=== PATIENT | female | born 2000 | race Caucasian/White ===

== ENCOUNTER 2020-09-26 11:52 | Emergency (ER) | payer BC, SELFPAY ==
--- NOTE | ~2020-09-26 | CT_ITS ---
EXAMINATION: CT abdomen pelvis w con INDICATION: Right lower quadrant pain TECHNIQUE: Computed tomographic images of the abdomen and pelvis were obtained after the administrati on of 100 cc of Omnipaque 350 intravenous contrast. The dose-length product (DLP) was 265.64 mGy-cm. Automated exposure control and iterative reconstruction technique were employed. COMPARISON: None available FINDINGS: The lung bases are clear. The heart size is normal. The liver, spleen, pancreas, gallbladde r, and adrenal glands are normal. The kidneys are unremarkable. The appendix is normal. There is a sm all volume of free fluid in the pelvis. No pathologically enlarged abdominal or pelvic lymph nodes ar e identified. There is no free intraperitoneal gas or evidence of bowel obstruction. IMPRESSION: 1. No CT correlate for the patient's symptoms. Normal appendix. If there is high clinical concern for ovarian torsion, pelvic ultrasound is more sensitive than would be recommended. Reviewed, dictated and finalized at location [facility]. [facility] [employer]MENT TENDER IMPRESSION: 1. No CT correlate for the patient's symptoms. Normal appendix. If there is hig h clinical concern for ovarian torsion, pelvic ultrasound is more sensitive hunter n would be recommended.
[2020-09-26 12:14] VITALS: BP 126/71; PULSE 84; RESP 16; TEMP 36.1; O2SAT 98
[2020-09-26 12:29] LABS: Basophils Percent Auto 0.3 % (0.2-1.2); Hematocrit 39.4 % (37.0-47.0); Hemoglobin 13.8 g/dL (12.0-15.0); Immature Granulocyte Absolute 0.06 K/mm3 (0.00-0.031); Immature Granulocyte Percent A 0.5 % (0-0.5); Lymphocytes Absolute Auto 0.75 K/mm3 (0.9-3.2); Lymphocytes Percent Auto 6.6 % (18.3-44.2); Mean Corpuscular Hemoglobin 31.7 pg (26-34); Mean Corpuscular Volume 90.6 fl (80-100); Mean Platelet Volume 10.7 fl (7.4-10.4); Monocytes Absolute Auto 0.4 K/mm3 (0.1-0.6); Monocytes Percent Auto 3.1 % (2.6-8.5); Neutrophils Absolute Auto 10.1 K/mm3 (1.3-6.7); Neutrophils Percent Auto 89.5 % (45.5-73.1); Platelet Count Result 248 k/mm3 (150-375); Red Blood Count 4.35 M/mm3 (4.2-5.4); Red Cell Distribution Width 12.9 % (11.5-14.5); White Blood Count 11.3 K/mm3 (4.5-10.0)
[2020-09-26 13:04] LABS: Alanine Aminotransferase 23 U/L (4-35); Albumin Level 4.9 g/dL (3.5-5.1); Alkaline Phosphatase 50 U/L (38-126); Anion Gap 12 mmol/L (8-16); Aspartate Amino Transferase 34 U/L (14-36); Blood Urea Nitrogen 10 mg/dL (7-17); Calcium 9.8 mg/dL (8.4-10.2); Carbon Dioxide 22 mmol/L (22-30); Chloride 101 mmol/L (98-107); Estimated CRCL calculation 79 ml/min; Estimated Glomerular Filt Rate > 60; Glucose 278 mg/dL (65-105); Lipase 13 U/L (23-300); Potassium 4.3 mmol/L (3.4-5.0); Sodium 135 mmol/L (137-145)
--- NOTE | 2020-09-26 13:04 | ED.GENADULT ---
HPI - General Adult General Chief complaint: Abdominal Pain Stated complaint: n/v Time Seen by Provider: 09/26/20 12:34 Source: patient Mode of arrival: ambulatory Limitations: no limitations History of Present Illness HPI narrative: Patient awakened at 7 AM with lower abdominal pain, cramps, spasm, sharp, no radiation associated with frequent vomiting. Patient denies any fever, chills, diarrhea, constipation, vaginal bleeding or discharge or urinary symptoms. Patient denies a history of Covid or exposure to anybody known having Covid. Patient is type 1 diabetes on insulin pump, does not smoke or uses drugs, drinks alcohol occasionally Pain almost resolved on arrival to the emergency room Related Data Home Medications Medication Instructions Recorded Confirmed insulin pump cartridge [Omnipod 09/26/20 09/26/20 Insulin Refill] Allergies Allergy/AdvReac Type Severity Reaction Status Date / Time No Known Allergies Allergy Verified 09/26/20 12:18 Review of Systems Review of Systems: Narrative: CONSTITUTIONAL: Denies fever, chills, or sweats. EYES: Denies visual changes, redness, or discharge. ENT: Denies rhinorrhea, congestion, sore throat, or otalgia. CARDIOVASCULAR: Denies chest pain, palpitations, or edema. RESPIRATORY: Denies cough or dyspnea. GASTROINTESTINAL: Denies abdominal pain, nausea, vomiting, or diarrhea. GENITOURINARY: Denies dysuria or hematuria. SKIN: Denies rash or itching. MUSCULOSKELETAL: Denies back pain, joint pain, or myalgia. NEUROLOGIC: Denies headache, numbness, or weakness. PSYCHIATRIC: Denies anxiety or depression. [facility] Social History Social History Gender identity (if verbalized by the patient): Female Exam Narrative: Exam Narrative: General appearance: Well-developed, well-nourished Skin: Normal color Head: Normocephalic, nontraumatic Eyes: Clear conjunctiva ENT: Oropharynx normal, ears normal, nose normal Neck: Supple, nontender Chest and respiratory: Airway patent, no respiratory distress, no accessory muscle use Heart: Regular rate/rhythm Abdomen: Soft, slight diffuse tenderness, quiet bowel sounds Vascular: Normal peripheral pulses, normal capillary refill. 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, no gross motor deficit Course Course Emergency Course: Improving Vital Signs Vital signs: Vital Signs Temperature 36.1 C L 09/26/20 12:14 Pulse Rate 84 09/26/20 12:14 Respiratory Rate 16 09/26/20 12:14 Blood Pressure 126/71 09/26/20 12:14 Pulse Oximetry 98 09/26/20 12:14 Temperature 36.1 C L 09/26/20 12:14 Pulse Rate 84 09/26/20 12:14 Respiratory Rate 16 09/26/20 12:14 Blood Pressure 126/71 09/26/20 12:14 Pulse Oximetry 98 09/26/20 12:14 Medical Decision Making MDM Narrative Medical decision making narrative: Patient presents with lower abdominal pain, sinusitis, urinary tract infection, ovarian cyst, constipation, urinary tract infection are my concern. Labs, CT abdomen and pelvis with IV contrast, IV fluid ordered. Further plan to follow Differential Diagnosis Differential Diagnosis: Appendicitis, urinary tract infection, ruptured ovarian cyst Vital Signs Vital Signs: Vital Signs Temperature 36.1 C L 09/26/20 12:14 Pulse Rate 84 09/26/20 12:14 Respiratory Rate 16 09/26/20 12:14 Blood Pressure 126/71 09/26/20 12:14 Pulse Oximetry 98 09/26/20 12:14 Temperature 36.1 C L 09/26/20 12:14 Pulse Rate 84 09/26/20 12:14 Respiratory Rate 16 09/26/20 12:14 Blood Pressure 126/71 09/26/20 12:14 Pulse Oximet
[2020-09-26] MEDS: SODIUM CHLORIDE 0.9% IV 1,000 ML 999 ML IV CONT (13:11)
[2020-09-26 13:46] LABS: Add Urine Microscopic? YES; Appearance Urine Clear (Clear); Bacteria Urine Trace /hpf; Bilirubin Urine Negative (Negative); Blood Urine Negative (Negative); Color Urine Yellow (Yellow); Glucose Urine UA 3+ mg/dL (Negative); Ketones Urine 2+ mg/dL (Negative); Leukocyte Esterase Ur Negative LEU/UL (Negative); Mucus Urine Rare /lpf; Nitrate Urine Negative (Negative); Protein Urine 1+ mg/dL (Negative); Specific Grav Ur 1.022 (1.001-1.035); Squamous Epithelial Cell Urine Rare /hpf (Few); Urobilinogen Urine Negative mg/dL (<2.0); WBC Urine 0-3 /hpf
[2020-09-26 14:37] VITALS: BP 128/66; PULSE 80; RESP 16; O2SAT 98
== END 2020-09-26 14:37 | disposition home or self-care (01) ==
PROVIDERS: Emergency Provider Emergency Medicine
DX: R10.30 Lower abdominal pain, unspecified (principal); E10.9 Type 1 diabetes mellitus without complications; Z96.41 Presence of insulin pump (external) (internal); Z79.4 Long term (current) use of insulin
CPT/HCPCS: 36415; 74177; 80053; 81001; 81025; 83690; 85025; 96360; 99284; J7030; Q9967